=== PATIENT | male | born 1965 | race Caucasian/White ===

== ENCOUNTER 2022-02-27 14:23 | Emergency (ER) | payer MEDICAID ==
[~2022-02-27] VITALS: Ht 170.2 cm; Wt 68.0 kg
[2022-02-27 14:36] VITALS: BP 113/66
--- NOTE | 2022-02-27 14:38 | NUR ---
Patient ambulated to bed 11 with steady/even gait.
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
--- NOTE | 2022-02-27 14:52 | NUR ---
Lab at bedside
--- NOTE | 2022-02-27 15:00 | NUR ---
RAD at bedside
[2022-02-27 15:02] LABS: BASOPHILS # (AUTO) 0.1 K/uL (0.00-0.22); BASOPHILS % (AUTO) 0.8 % (0.0-2.0); EOSINOPHILS # (AUTO) 0.1 K/uL (0-0.4); EOSINOPHILS % (AUTO) 0.9 % (0.0-4.0); HEMATOCRIT 41.9 % (36-52); HEMOGLOBIN 14.7 g/dL (12.0-18.0); LYMPHOCYTES # (AUTO) 2.3 K/uL (2.0-11.5); MEAN CORPUSCULAR HEMOGLOBIN 28 pg (27-31); MEAN CORPUSCULAR HGB CONC 35 g/dL (33-37); MEAN CORPUSCULAR VOLUME 80.9 fL (80-94); MONOCYTES # (AUTO) 0.6 K/uL (0.8-1.0); MONOCYTES % (AUTO) 8.4 % (1.7-9.3); NEUTROPHILS # (AUTO) 4.1 K/uL (1.8-7.7); NEUTROPHILS % (AUTO) 57.9 % (42.2-75.2); PLATELET COUNT (AUTO) 210 K/uL (140-450); RED BLOOD CELL COUNT(AUTO) 5.18 MIL/uL (4.20-6.10); RED CELL DISTRIBUTION WIDTH 13.6 % (11.6-13.7); WHITE BLOOD COUNT (AUTO) 7.1 K/uL (4.8-10.8)
--- NOTE | 2022-02-27 15:08 | NUR ---
Dr. Thompson is evaluating patient at bedside
[2022-02-27 15:30] LABS: ALBUMIN 3.8 g/dL (3.4-5.0); ANION GAP 13.4 (8-16); ASPARTATE AMINOTRANSFERASE 15 U/L (15-37); CARBON DIOXIDE 25.4 mmol/L (21-32); CHLORIDE 105 mmol/L (98-107); CREATININE 1.2 mg/dL (0.6-1.3); GFR ARICAN-AMERICAN 80 mL/min (>90); GLUCOSE 147 mg/dL (74-106); POTASSIUM 3.8 mmol/L (3.5-5.1); SODIUM SERUM 140 mmol/L (136-145); TOTAL BILIRUBIN 0.5 mg/dL (0.0-1.0); UREA NITROGEN, BLOOD 17 mg/dL (7-18)
[2022-02-27] MEDS ORDERED: ATA25 PO (16:06)
--- NOTE | 2022-02-27 16:25 | NUR ---
Patient discharged with v/s stable. Written and verbal after care instructions given and explained for Nonspecific Chest Pain, Adult. Patient alert, oriented and verbalized understanding of instructions. Ambulatory with steady gait. All questions addressed prior to discharge. ID band removed. Patient advised to follow up with PMD. Rx of Atarax given. Patient educated on indication of medication including possible reaction and side effects. Opportunity to ask questions provided and answered. Copies of RAD, blood work handed to patient.
== END 2022-02-27 16:25 | disposition home or self-care (01) ==
LOC: MED 14:23
DX: R07.89 Other chest pain (principal); E78.5 Hyperlipidemia, unspecified; Z98.890 Other specified postprocedural states; Z79.899 Other long term (current) drug therapy
CPT/HCPCS: 36415; 71045; 80053; 84484; 85025; 93005; 99285

== ENCOUNTER 2022-04-26 16:45 | Emergency (ER) | payer MEDICAID ==
[~2022-04-26] VITALS: Ht 174.5 cm; Wt 75.1 kg
[~2022-04-26 16:45] MED LIST: ATA25 PO
[2022-04-26 17:28] VITALS: BP 123/71
--- NOTE | 2022-04-26 17:35 | NUR ---
[facility]INLEY. HANDED ON URINE CUP.
[2022-04-26] MEDS ORDERED: IBUP-2213 PO (19:11)
[2022-04-26 19:46] VITALS: BP 123/71
== END 2022-04-26 19:46 | disposition home or self-care (01) ==
LOC: MED 16:45
DX: K40.90 Unilateral inguinal hernia, without obstruction or gangrene, not specified as recurrent (principal); R03.0 Elevated blood-pressure reading, without diagnosis of hypertension; Z79.899 Other long term (current) drug therapy; Z79.1 Long term (current) use of non-steroidal anti-inflammatories (NSAID)
CPT/HCPCS: 99284